=== PATIENT | female | born 1935 | race African-American/Black ===

== ENCOUNTER 2017-03-29 00:18 | Observation (INO) | payer MEDICARE, OTHER ==
[~2017-03-29] VITALS: Ht 152.4 cm; Wt 81.6 kg
[2017-03-29] MEDS ORDERED: ONDANSETRON HCL 4MG/2ML VIAL IV STA (01:01)
[2017-03-29] MEDS ORDERED: SODIUM CHLORIDE 0.9% 1,000 ML IV ONE (01:01)
[2017-03-29] MEDS ORDERED: KETOROLAC 30MG/ML VIAL IV STA (01:01)
[2017-03-29 01:25] LABS: BASOPHILS % 1.1 % (0.0-2.0); EOSINOPHILS % 1.9 % (0.0-5.0); HEMATOCRIT. 37.1 % (36.0-48.0); HEMOGLOBIN. 12.8 g/dL (12.0-16.0); LYMPHOCYTES % 27.4 % (20.0-50.0); MEAN CORPUSCULAR HEMOGLOBIN 25.6 pg (28.0-32.0); MEAN CORPUSCULAR VOLUME 74.5 fL (81.0-99.0); MEAN PLATELET VOLUME 8.8 fl (7.4-10.4); MONOCYTES % 11.2 % (2.0-8.0); NEUTROPHILS % 58.4 % (40.0-76.0); PLATELET 200 x1000/uL (130-400); RED BLOOD CELL COUNT 4.99 mill/uL (4.2-5.4); RED CELL DISTRIBUTION WIDTH 14.9 % (11.6-14.6)
[2017-03-29 01:27] LABS: CHLORIDE 103 mEq/L (98-107)
[2017-03-29 01:29] LABS: PROTHROMBIN TIME 10.1 sec (9.4-11.6)
[2017-03-29 01:40] LABS: CARBON DIOXIDE 29 mEq/L (21-32)
[2017-03-29] MEDS ORDERED: MAGNESIUM CITRATE 300ML SOLUTION PO ONE (03:15)
[2017-03-29 03:27] LABS: CLARITY URINE CLEAR (CLEAR); COLOR URINE YELLOW (YELLOW); GLUCOSE URINE NEGATIVE (NEGATIVE); KETONES URINE NEGATIVE (NEGATIVE); LEUKOCYTE ESTERASE URINE NEGATIVE (NEGATIVE); NITRITE URINE NEGATIVE (NEGATIVE); OCCULT BLOOD URINE NEGATIVE (NEGATIVE); PH URINE 7.5 (4.5-8.0); PROTEIN URINE NEGATIVE (NEGATIVE); SPECIFIC GRAVITY URINE 1.011 (1.005-1.030)
[2017-03-29] MEDS ORDERED: SODIUM CHLORIDE 0.9% 1,000 ML IV SCH (03:58)
[2017-03-29] MEDS ORDERED: LACTULOSE 20G/30ML UDC PO ONE (04:00)
[2017-03-29 08:45] VITALS: BP 140/73
[2017-03-29] MEDS ORDERED: PRAV20TA57 PO (11:18)
[2017-03-29] MEDS ORDERED: OMEP20CA10 PO (11:19)
[2017-03-29 11:44] VITALS: BP 176/82
[2017-03-29] MEDS ORDERED: CLONIDINE 0.1MG TABLET PO PRN ×2 (12:15→16:00)
[2017-03-29 15:49] VITALS: BP 109/52
[2017-03-29] MEDS ORDERED: ONDANSETRON HCL 4MG/2ML VIAL IV PRN (16:00)
[2017-03-29] MEDS ORDERED: DOCUSATE SODIUM 100MG CAPSULE PO PRN (16:00)
[2017-03-29] MEDS ORDERED: HYDROCODONE/ACETAMINOPHEN 5/325MG TABLET PO PRN (16:00)
[2017-03-29] MEDS ORDERED: IPRATROPIUM/ALBUTEROL 0.5-3(2.5)MG/3ML NEB INH PRN (16:00)
[2017-03-29] MEDS ORDERED: ACETAMINOPHEN 325MG TABLET PO PRN (16:00)
[2017-03-29] MEDS ORDERED: ENOXAPARIN 40MG/0.4ML SYR SUBCUT SCH (17:00)
[2017-03-29 20:00] VITALS: BP 125/56
[2017-03-29 23:27] LABS: CREATINE KINASE 64 IU/L (26-192); TROPONIN I < 0.02 ng/mL (0.00-0.04)
[2017-03-30] VITALS: BP 136/69
[2017-03-30 04:00] VITALS: BP 128/60
[2017-03-30 06:11] LABS: BASOPHILS % 0.5 % (0.0-2.0); EOSINOPHILS % 2.2 % (0.0-5.0); HEMATOCRIT. 37.1 % (36.0-48.0); HEMOGLOBIN. 12.6 g/dL (12.0-16.0); LYMPHOCYTES % 32.5 % (20.0-50.0); MEAN CORPUSCULAR HEMOGLOBIN 25.6 pg (28.0-32.0); MEAN CORPUSCULAR VOLUME 75.4 fL (81.0-99.0); MEAN PLATELET VOLUME 8.9 fl (7.4-10.4); NEUTROPHILS % 53.8 % (40.0-76.0); PLATELET 187 x1000/uL (130-400); RED BLOOD CELL COUNT 4.93 mill/uL (4.2-5.4); RED CELL DISTRIBUTION WIDTH 15.1 % (11.6-14.6)
[2017-03-30 06:53] LABS: CARBON DIOXIDE 27 mEq/L (21-32); CHLORIDE 104 mEq/L (98-107); CREATINE KINASE 58 IU/L (26-192); HDL CHOLESTEROL 60 mg/dL (40-59); LDL CHOLESTEROL 86 mg/dL (5-100); T4 FREE 1.11 ng/dL (0.76-1.46); TROPONIN I < 0.02 ng/mL (0.00-0.04)
[2017-03-30 07:52] VITALS: BP 127/57
[2017-03-30 11:41] VITALS: BP 122/80
[2017-03-30 14:26] VITALS: BP 122/80
== END 2017-03-30 18:20 | disposition home or self-care (01) ==
LOC: ER 00:18 → 8WST 04:01 → INTOOBSV 04:01 → ENRESERV 07:01
PROVIDERS: ADMIT Internal Medicine; ATTEND Internal Medicine
DX: G89.29 Other chronic pain (principal); I10 Essential (primary) hypertension; Z95.0 Presence of cardiac pacemaker; Z85.528 Personal history of other malignant neoplasm of kidney; Z90.710 Acquired absence of both cervix and uterus
CPT/HCPCS: 36415; 74176; 80053; 80061; 81003; 82550; 83690; 84439; 84443; 84484; 85025; 85610; 96361; 96372; 96374; 96375; 99285; G0378; J1650; J1885; J2405; J7030